=== PATIENT | male | born 1930 | race Caucasian/White ===

== ENCOUNTER 2017-11-12 16:14 | Emergency (ER) | payer MEDICARE, OTHER ==
[~2017-11-12] VITALS: Ht 172.7 cm; Wt 65.8 kg
[~2017-11-12 16:14] MED LIST: ATOR10 PO; ATOR40TA PO; AZIT250 PO; CARV6.25 PO; COMBIVENT RESPIM4 GM; COMBIVENT RESPIM4 GM INH; ESCI10 PO; FOLI1 PO; HYDACE5 PO; HYDR1TAB94 PO; LEVFLO250 PO; LEVSOD50 PO; Levothyroxine200 MCG PO; Lisinopril2.5 MG; MULVITMIND PO; NEPHROCAP PO; Nephro-Vite RX1 EA PO; Norco 5-325 Ta1 EACH PO; PRAV20 PO; PRED20 PO; RANI150 PO; SEVEC800; TERA5 PO; VICODIN 5-3001 EACH PO; VITAMIN D2000 UNIT PO; VITAMIN D32000 UNIT PO; VITB100 PO; WARF1 PO; WARF2.5 PO; WARF5 PO
[2017-11-12] MEDS ORDERED: CLIN150 PO (16:49)
[2017-11-12] MEDS ORDERED: Anti-Diarrheal2 MG PO (16:52)
[2017-11-12] MEDS ORDERED: PROMETHAZINE-P118 M1 PO (16:53)
[2017-11-12 17:07] LABS: BASOPHILS ABSOLUTE AUTO 0.05 K/mm3 (0.00-0.23); BASOPHILS PERCENT AUTO 1 % (0-2); EOSINOPHILS ABSOLUTE AUTO 0.31 K/mm3 (0.00-0.68); EOSINOPHILS PERCENT AUTO 4 % (0-6); Hematocrit 31.8 % (37.0-53.0); Hemoglobin 10.5 g/dL (13.5-17.5); IMMATURE GRAN ABSOLUTE AUTO 0.02 K/mm3 (0.00-0.10); IMMATURE GRAN PERCENT AUTO 0 % (0-1); LYMPHOCYTES ABSOLUTE AUTO 1.23 K/mm3 (0.84-5.20); LYMPHOCYTES PERCENT AUTO 16 % (21-46); MONOCYTES ABSOLUTE AUTO 0.69 K/mm3 (0.16-1.47); MONOCYTES PERCENT AUTO 9 % (4-13); Mean Corpuscular HGB 35.6 pg (26.0-34.0); Mean Corpuscular Volume 108 fL (80-100); Mean Platelet Volume 12.3 fL (9.1-12.4); NEUTROPHILS ABSOLUTE AUTO 5.32 K/mm3 (1.96-9.15); NEUTROPHILS PERCENT AUTO 70 % (41-73); Platelet Count 91 K/mm3 (150-400); RDW Coefficient Variation 14.8 % (11.7-14.2); RDW Standard Deviation 58.5 fL (35.1-46.3); Red Blood Cell Count 2.95 M/mm3 (4.30-5.90); White Blood Cell Count 7.62 K/mm3 (4.00-11.30)
[2017-11-12 17:18] LABS: Bun/Creatinine Ratio 9.4 (12.0-20.0); Calcium, Blood 9.1 mg/dL (8.5-10.1); Creatinine, Blood 4.25 mg/dL (0.60-1.20); Potassium, Blood 3.2 mmol/L (3.5-5.5)
[2018-05-05] MEDS ORDERED: Acetaminophen650 M1 PO (12:48)
[2018-05-05] MEDS ORDERED: HYDR1TAB94 PO (12:49)
== END 2017-11-12 20:25 | disposition home or self-care (01) ==
LOC: ER 16:14
PROVIDERS: Emergency Medicine
DX: E87.8 Other disorders of electrolyte and fluid balance, not elsewhere classified (principal); S09.91XA Unspecified injury of ear, initial encounter; D64.9 Anemia, unspecified; N18.6 End stage renal disease; Z99.2 Dependence on renal dialysis; J44.9 Chronic obstructive pulmonary disease, unspecified; Z99.81 Dependence on supplemental oxygen; Z87.891 Personal history of nicotine dependence; Z88.0 Allergy status to penicillin; Z91.041 Radiographic dye allergy status; Z79.01 Long term (current) use of anticoagulants; X58.XXXA Exposure to other specified factors, initial encounter
CPT/HCPCS: 36415; 80048; 85025; 93005; 93010; 99284